=== PATIENT | male | born 1985 | race Caucasian/White ===

== ENCOUNTER 2016-11-26 11:30 | Day surgery (SDC) | payer BC ==
[2016-11-26] MEDS ORDERED: FENTANYL PF 100MCG/2ML VIAL IV ONE (16:06)
[2016-11-26] MEDS ORDERED: PROPOFOL 10 MG/ML VIAL IV ONE (16:06)
[2016-11-26] MEDS ORDERED: LIDOCAINE 2% MDV (20MG/ML) 20ML VIAL IV ONE (16:06)
--- NOTE | 2016-12-02 10:20 | Operative Note ---
DATE OF SURGERY: 11/26/2016 REFERRING PROVIDER: Alexander Fagan DO PREOPERATIVE DIAGNOSIS: Epigastric pain and chronic heartburn. POSTOPERATIVE DIAGNOSES: 1. Normal-appearing stomach. Rule out occult H pylori. 2. Irregular Z-line. Rule out Frankel's. OPERATION: ESOPHAGOGASTRODUODENOSCOPY with biopsy. Preparation Quality: Good to excellent. Estimated Blood Loss: Minimal. Samples Obtained: None. Complications: None apparent. PROCEDURE: After informed consent was obtained, the patient was placed in the left lateral decubitus position in the endoscopy suite, sedated and monitored by the Department of Anesthesia. Once sedated, a well-lubricated FNG299 gastroscope was placed in the posterior oropharynx and under direct visualization passed to the proximal esophagus. The endoscope was advanced to the proximal, mid and distal esophagus. The GE junction was irregular with irregular-appearing Z-line. There may have been changes consistent with short-segment Frankel's present. The remainder of the esophagus was unremarkable. There were no masses seen. No strictures were noted. The gastric body and antrum were inspective and were unremarkable. The pylorus, duodenal bulb and sweep were unremarkable. J-turn views of the proximal stomach revealed no masses, erosions or inflammation. The endoscope was then straightened. Antrum and distal body biopsies were obtained for histology. The irregular Z-line/GE junction, perhaps short-segment Frankel's segment was biopsied multiple times. No excessive bleeding was noted. The endoscope was removed from the patient with no new findings or abnormalities identified. RECOMMENDATIONS: I would suggest the patient resume his medications. He should undergo repeat exam pending tissue histology. In particular, if he has Frankel's, a repeat exam in 3 years would be suggested. As always, thank you for allowing me to participate in the health care of your patients. CC: DO AMADOR Kaplan
== END 2016-11-26 14:10 | disposition home or self-care (01) ==
LOC: HOP 11:30
PROVIDERS: ATTEND Internal Medicine Gastroenterology
DX: K31.89 Other diseases of stomach and duodenum (principal); R10.13 Epigastric pain
CPT/HCPCS: 43235; 00740; J3010